=== PATIENT | female | born 1985 | race American Indian/Alaskan Native ===

== ENCOUNTER 2018-01-13 11:31 | Emergency (ER) | payer MEDICAID ==
[2018-01-13 11:37] VITALS: BP 118/78
[2018-01-13] MEDS ORDERED: ULTRAM PO ONE (13:22)
[2018-01-13] MEDS ORDERED: MOTRIN PO ONE (13:22)
--- NOTE | 2018-01-13 13:27 | Emergency Department Report ---
ED Back Pain/Injury HPI - General Chief Complaint: Back Pain/Injury Stated Complaint: NECK/BACK SPASM Time Seen by Provider: 01/13/18 13:17 Source: patient Limitations: No Limitations - History of Present Illness Initial Comments: Patient is a 32-year-old female who has a history of herniated disc who is presenting with pain. Patient states is located upper back. Patient states she was laying in bed 2 days ago and she went to turn to get out of the bed and started hurting. Patient denies any numbness in the arms legs any bowel or bladder abnormality. Patient denies any fever or IV drug use at this time. Severity scale (0 -10): 7 Quality: dull, aching Consistency: constant Worsens With: movement - Related Data Previous Rx's Medication Instructions Recorded Last Taken Type Ibuprofen [Motrin 800 MG tab] 800 mg PO ONCE #20 tablet 01/13/18 Unknown Rx methOCARBAMOL [Robaxin TAB] 500 mg PO Q6H PRN #20 tablet 01/13/18 Unknown Rx traMADol [Ultram 50 MG tab] 50 mg PO ONCE #12 tablet 01/13/18 Unknown Rx Allergies Allergy/AdvReac Type Severity Reaction Status Date / Time No Known Allergies Allergy Unverified 01/13/18 11:35 ED Review of Systems ROS: Stated complaint: NECK/BACK SPASM Other details as noted in HPI Comment: All other systems reviewed and negative ED Back Pain Physical Exam - Exam General: Vital signs noted. No distress. Alert and acting appropriately. The patient's lung and cardiovascular exams are within normal limits Back/Abdomen: Yes Perithoracic Tenderness, No Abdominal Tenderness, No Perilumbar Tenderness, No Sacroiliac Tenderness, No Flank Tenderness, No Straight Leg Raise Pain Neuro: Yes Normal Sensation, Yes Normal DTR's, Yes Normal Gait, No Motor Weakness ED Course Vital Signs 01/13/18 11:35 Temperature 98.3 F Pulse Rate 73 Respiratory 18 Rate Blood Pressure 118/78 O2 Sat by Pulse 100 Oximetry Critical care attestation.: If time is entered above; I have spent that time in minutes in the direct care of this critically ill patient, excluding procedure time. ED Disposition Clinical Impression: Back strain Qualifiers: Encounter type: initial encounter Qualified Code(s): S39.012A - Strain of muscle, fascia and tendon of lower back, initial encounter Disposition: -01 TO HOME OR SELFCARE Is pt being admited?: No Does the pt Need Aspirin: No Condition: Stable Instructions: Back Pain (ED) Prescriptions: Ibuprofen [Motrin 800 MG tab] 800 mg PO ONCE #20 tablet methOCARBAMOL [Robaxin TAB] 500 mg PO Q6H PRN #20 tablet PRN Reason: Pain traMADol [Ultram 50 MG tab] 50 mg PO ONCE #12 tablet Referrals: RAJAT GALARZA MD [Staff Physician] - 3-5 Days
== END 2018-01-13 13:38 | disposition home or self-care (01) ==
LOC: ED 11:31
DX: S39.012A Strain of muscle, fascia and tendon of lower back, initial encounter (principal); X58.XXXA Exposure to other specified factors, initial encounter; Y93.89 Activity, other specified; Y92.89 Other specified places as the place of occurrence of the external cause; Y99.8 Other external cause status
CPT/HCPCS: 99282

== ENCOUNTER 2018-01-22 04:15 | Emergency (ER) | payer MEDICAID ==
[2018-01-22 05:17] VITALS: BP 131/100
[2018-01-22] MEDS ORDERED: TORADOL ONE (05:20)
[2018-01-22] MEDS ORDERED: TORADOL IM ONE (05:25)
[2018-01-22 05:46] LABS: Bilirubin,Urine NEG (Negative); Blood,Urine NEG (Negative); Color,Urine Yellow (Yellow); Hyaline Casts,Urine 4 /LPF; Mucus,Urine 3+ /HPF; Protein,Urine <15 mg/dL mg/dL (Negative)
[2018-01-22 05:53] LABS: Hematocrit 33.6 % (30.3-42.9); Hemoglobin 11.3 gm/dl (10.1-14.3); Mean Corpuscular HGB Conc 34 % (30-34); Mean Corpuscular Hemoglobin 30 pg (28-32); Mean Corpuscular Volume 89 fl (79-97); Platelet Count 167 K/mm3 (140-440); Red Blood Count 3.78 M/mm3 (3.65-5.03); Red Cell Distribution Width 13.4 % (13.2-15.2)
[2018-01-22 06:02] LABS: BUN/Creatinine Ratio 17; Blood Urea Nitrogen 10 mg/dL (7-17); Calcium 8.6 mg/dL (8.4-10.2); Hemolysis Index 8
[2018-01-22 07:55] LABS: Basophils % (Manual) 0 % (0.0-1.8); Total Cells Counted 100
[2018-01-22 07:56] LABS: Anisocytosis 1+
--- NOTE | 2018-01-22 10:40 | Emergency Department Report ---
ED Abdominal Pain HPI - General Chief Complaint: Abdominal Pain Stated Complaint: LOWER BACK PAIN Time Seen by Provider: 01/22/18 10:36 Source: patient Mode of arrival: Ambulatory Limitations: No Limitations - History of Present Illness MD Complaint: flank pain -: Sudden, days(s) (1 day) Location: R flank Radiation: none Migration to: no migration Severity: severe Severity scale (0 -10): 10 Quality: stabbing Consistency: constant Improves With: rest Worsens With: movement Associated Symptoms: denies other symptoms Treatments Prior to Arrival: NSAIDs - Related Data LMP (females 10-50): 3 weeks Previous Rx's Medication Instructions Recorded Last Taken Type methOCARBAMOL [Robaxin TAB] 500 mg PO Q6H PRN #20 tablet 01/13/18 Unknown Rx traMADol [Ultram 50 MG tab] 50 mg PO ONCE #12 tablet 01/13/18 Unknown Rx Ibuprofen [Motrin 800 MG tab] 800 mg PO ONCE #20 tablet 01/22/18 Unknown Rx Tamsulosin HCl [Flomax] 0.4 mg PO QDAY 14 Days #14 01/22/18 Unknown Rx cap.er.24h Allergies Allergy/AdvReac Type Severity Reaction Status Date / Time No Known Allergies Allergy Unverified 01/13/18 11:35 ED Review of Systems ROS: Stated complaint: LOWER BACK PAIN Other details as noted in HPI Comment: All other systems reviewed and negative Constitutional: denies: chills, fever Eyes: denies: eye pain, eye discharge, vision change ENT: denies: ear pain, throat pain Respiratory: denies: cough, shortness of breath, wheezing Cardiovascular: denies: chest pain, palpitations Endocrine: no symptoms reported Gastrointestinal: abdominal pain. denies: nausea, diarrhea Genitourinary: denies: urgency, dysuria, discharge Musculoskeletal: denies: back pain, joint swelling, arthralgia Skin: denies: rash, lesions Neurological: denies: headache, weakness, paresthesias Psychiatric: denies: anxiety, depression Hematological/Lymphatic: denies: easy bleeding, easy bruising ED Past Medical Hx - Past Medical History Previous Medical History?: Yes Hx Asthma: Yes - Surgical History Past Surgical History?: Yes Additional Surgical History: sinus, knee, hand, C/S - Family History Family history: hypertension - Social History Smoking Status: Never Smoker Substance Use Type: None - Medications Home Medications: Home Medications Medication Instructions Recorded Confirmed Last Taken Type methOCARBAMOL [Robaxin TAB] 500 mg PO Q6H PRN #20 tablet 01/13/18 Unknown Rx traMADol [Ultram 50 MG tab] 50 mg PO ONCE #12 tablet 01/13/18 Unknown Rx Ibuprofen [Motrin 800 MG tab] 800 mg PO ONCE #20 tablet 01/22/18 Unknown Rx Tamsulosin HCl [Flomax] 0.4 mg PO QDAY 14 Days #14 01/22/18 Unknown Rx cap.er.24h ED Physical Exam - General Limitations: No Limitations General appearance: alert, in no apparent distress - Head Head exam: Present: atraumatic, normocephalic - Eye Eye exam: Present: normal appearance - ENT ENT exam: Present: mucous membranes moist - Neck Neck exam: Present: normal inspection - Respiratory Respiratory exam: Present: normal lung sounds bilaterally. Absent: respiratory distress - Cardiovascular Cardiovascular Exam: Present: regular rate, normal rhythm. Absent: systolic murmur, diastolic murmur, rubs, gallop - GI/Abdominal GI/Abdominal exam: Present: soft, normal bowel sounds - Extremities Exam Extremities exam: Present: normal inspection - Back Exam Back exam: Present: normal inspection, CVA tenderness (R) - Neurological Exam Neurological exam: Present: alert, oriented X3 - Psychiatric Psychiatric exam: Present: normal affect, normal mood - Skin Skin exam: Present: warm, dry, intact, normal color. Absent: rash ED Course Vital Signs 01/22/18 05:08 Temperature 98 F Pulse Rate 88 Respiratory 18 Rate Blood Pressure 131/100 O2 Sat by Pulse 100 Oximetry - Reevaluation(s) Reevaluation #1: Per radiologist CT is positive for right renal stone. Patient is stable for discharge. 01/22/18 12:16 ED Medical Decision Making - Lab Data Result diagrams: 01/22/18 05:36 01/22/18 05:36 - Radiology Data Radiology results: pending interpreted by me: Radiologist called with results Right renal stone no hydronephrosis. - Medical Decision Making Patient is a 32-year-old female who presented with right flank pain. Found to have right kidney stones on CT. No hydronephrosis. Patient stable at discharge. We'll discharge patient home. Patient instructed to see PCP and urologist within 3-5 days. Patient to take Rx as directed. - Differential Diagnosis uti. flank pain. renal stone. Critical care attestation.: If time is entered above; I have spent that time in minutes in the direct care of this critically ill patient, excluding procedure time. ED Disposition Clinical Impression: Flank pain, Kidney stone Disposition: TO HOME OR SELFCARE Is pt being admited?: No Does the pt Need Aspirin: No Condition: Stable Instructions: Abdominal Pain (ED) Additional Instructions: Patient to follow up with primary care and urologist in 3-5 days. Patient increase water. Patient to return to ER if condition worsens. Patient to take Tylenol when necessary for pain. Patient has tramadol patient instructed to use as directed. Prescriptions: Ibuprofen [Motrin 800 MG tab] 800 mg PO ONCE #20 tablet Tamsulosin HCl [Flomax] 0.4 mg PO QDAY 14 Days #14 cap.er.24h Referrals: LEONOR HUMPHREY MD [Primary Care Provider] - 3-5 Days Time of Disposition: 12:30
[2018-01-22] MEDS ORDERED: TYLENOL ONE (11:38)
--- NOTE | 2018-01-22 15:59 | Cat Scan Report ---
FINAL REPORT EXAM: CT ABDOMEN PELVIS WO CON HISTORY: rt flank pain TECHNIQUE: CT examination of the ABDOMEN without IV contrast CT examination of the PELVIS without IV contrast PRIORS: None. FINDINGS: Normal noncontrast appearance of the liver, gallbladder, adrenals, pancreas, and spleen. Normal caliber abdominal aorta and IVC. 1 mm nonobstructing right renal calculus. 1 mm nonobstructing left renal calculus. There are nonspecific hyperdense renal pyramids. This may reflect developmental variation, dehydration, or represent medullary nephrocalcinosis. No hydronephrosis. The exam is limited from a paucity of natural intra-abdominal fat, and lack of contrast, to separate adjacent organs and structures. The ureters are largely obscured by adjacent soft tissues. Intestinal loops are also difficult to visualize separately. No retroperitoneal adenopathy. No definite mesenteric mass. Intact abdominal wall. No abnormality in visible stomach and duodenum. No small bowel distention in the abdomen and pelvis. No pelvic free fluid. Normal-appearing urinary bladder, uterus, and adnexa. No gross ascites or free air. Normal visible portion of the appendix. Normal-appearing terminal ileum. Rectum distended with feces and gas. Prominent feces, caliber, and gas throughout the colon. Findings suggest moderate constipation. IMPRESSION: Prominent feces and caliber throughout the colon and rectum suggestive of moderate constipation. There may be a component of paralytic ileus given prominence of gas as well 1 mm nonobstructing calculus in each kidney Hyperdense renal pyramids may reflect developmental variation or dehydration. The differential includes medullary nephrocalcinosis.
== END 2018-01-22 13:00 | disposition home or self-care (01) ==
LOC: ED 04:15
DX: N20.0 Calculus of kidney (principal); R10.30 Lower abdominal pain, unspecified
CPT/HCPCS: 36415; 74176; 80048; 81001; 84703; 85007; 85025; 96372; 99284; J1885

== ENCOUNTER 2018-03-17 06:06 | Emergency (ER) | payer MEDICAID ==
[2018-03-17 06:17] VITALS: BP 126/95
[2018-03-17] MEDS ORDERED: TYLENOL #3 PO ONE (09:35)
--- NOTE | 2018-03-17 09:40 | Emergency Department Report ---
ED ENT HPI - General Chief complaint: Earache Stated complaint: LEFT EAR PAIN Time Seen by Provider: 03/17/18 08:39 Source: patient Mode of arrival: Ambulatory Limitations: No Limitations - History of Present Illness Initial comments: This is a 32-year-old female nontoxic, well nourished in appearance, no acute signs of distress presents to the ED with c/o of left earache x3 days. Patient denies any trauma to the area. Patient stated that left earache radiates towards her left sided head/neck area. Patient denies any hearing changes or decreased hearing. Patient denies any mastoid tenderness. Patient denies any fever, chills, nausea, vomiting, headache, stiff neck, abdominal pain, back pain , numbness or tingling. Patient denies any allergies. Past medical history includes asthma and HIV. Patient stated that she is undetectable as per 2 months ago for HIV. MD complaint: ear pain -: days(s) (3) Location: L ear Severity: mild Severity scale (0 -10): 8 Quality: aching Consistency: constant Improves with: none Worsens with: none Associated Symptoms: denies: fever, cough, gum swelling, toothache, pain with swallowing, sore throat, tinnitus, hearing loss, discharge from ear, rhinorrhea - Related Data Previous Rx's Medication Instructions Recorded Last Taken Type methOCARBAMOL [Robaxin TAB] 500 mg PO Q6H PRN #20 tablet 01/13/18 Unknown Rx traMADol [Ultram 50 MG tab] 50 mg PO ONCE #12 tablet 01/13/18 Unknown Rx Ibuprofen [Motrin 800 MG tab] 800 mg PO ONCE #20 tablet 01/22/18 Unknown Rx Tamsulosin HCl [Flomax] 0.4 mg PO QDAY 14 Days #14 01/22/18 Unknown Rx cap.er.24h Acetaminophen/Codeine [Tylenol 1 tab PO Q6H PRN #12 tab 03/17/18 Unknown Rx /Codeine # 3 tab] Amoxicillin/K Clav Tab [Augmentin 1 tab PO Q12HR #20 tab 03/17/18 Unknown Rx 875 mg] Allergies Allergy/AdvReac Type Severity Reaction Status Date / Time No Known Allergies Allergy Verified 03/17/18 06:16 ED Dental HPI - General Chief complaint: Earache Stated complaint: LEFT EAR PAIN Time Seen by Provider: 03/17/18 08:39 Source: patient Mode of arrival: Ambulatory Limitations: No Limitations - Related Data Previous Rx's Medication Instructions Recorded Last Taken Type methOCARBAMOL [Robaxin TAB] 500 mg PO Q6H PRN #20 tablet 01/13/18 Unknown Rx traMADol [Ultram 50 MG tab] 50 mg PO ONCE #12 tablet 01/13/18 Unknown Rx Ibuprofen [Motrin 800 MG tab] 800 mg PO ONCE #20 tablet 01/22/18 Unknown Rx Tamsulosin HCl [Flomax] 0.4 mg PO QDAY 14 Days #14 01/22/18 Unknown Rx cap.er.24h Acetaminophen/Codeine [Tylenol 1 tab PO Q6H PRN #12 tab 03/17/18 Unknown Rx /Codeine # 3 tab] Amoxicillin/K Clav Tab [Augmentin 1 tab PO Q12HR #20 tab 03/17/18 Unknown Rx 875 mg] Allergies Allergy/AdvReac Type Severity Reaction Status Date / Time No Known Allergies Allergy Verified 03/17/18 06:16 ED Review of Systems ROS: Stated complaint: LEFT EAR PAIN Other details as noted in HPI Constitutional: denies: chills, fever Eyes: denies: eye pain, eye discharge, vision change ENT: ear pain. denies: throat pain Respiratory: denies: cough, shortness of breath, wheezing Cardiovascular: denies: chest pain, palpitations Endocrine: no symptoms reported Gastrointestinal: denies: abdominal pain, nausea, diarrhea Genitourinary: denies: urgency, dysuria, discharge Musculoskeletal: denies: back pain, joint swelling, arthralgia Skin: denies: rash, lesions Neurological: denies: headache, weakness, paresthesias Psychiatric: denies: anxiety, depression Hematological/Lymphatic: denies: easy bleeding, easy bruising ED Past Medical Hx - Past Medical History Previous Medical History?: Yes Hx Asthma: Yes Hx HIV: Yes - Surgical History Past Surgical History?: Yes Additional Surgical History: sinus, knee, hand, x1 - Social History Smoking Status: Never Smoker Substance Use Type: None - Medications Home Medications: Home Medications Medication Instructions Recorded Confirmed Last Taken Type methOCARBAMOL [Robaxin TAB] 500 mg PO Q6H PRN #20 tablet 01/13/18 Unknown Rx traMADol [Ultram 50 MG tab] 50 mg PO ONCE #12 tablet 01/13/18 Unknown Rx Ibuprofen [Motrin 800 MG tab] 800 mg PO ONCE #20 tablet 01/22/18 Unknown Rx Tamsulosin HCl [Flomax] 0.4 mg PO QDAY 14 Days #14 01/22/18 Unknown Rx cap.er.24h Acetaminophen/Codeine [Tylenol 1 tab PO Q6H PRN #12 tab 03/17/18 Unknown Rx /Codeine # 3 tab] Amoxicillin/K Clav Tab [Augmentin 1 tab PO Q12HR #20 tab 03/17/18 Unknown Rx 875 mg] ED Physical Exam - General Limitations: No Limitations General appearance: alert, in no apparent distress - Head Head exam: Present: atraumatic, normocephalic - Eye Eye exam: Present: normal appearance Pupils: Present: normal accommodation - ENT ENT exam: Present: normal orophraynx, mucous membranes moist, normal external ear exam - Expanded ENT Exam Expanded Ear exam: Present: normal external inspection TM/Canal exam: Erythema: Left TM, Bulging: Left TM Mouth exam: Present: normal external inspection, tongue normal. Absent: drooling, trismus, muffled voice, tongue elevation, laceration Teeth exam: Present: normal inspection Throat exam: Positive: normal inspection. Negative: tonsillar erythema, tonsillomegaly, tonsillar exudate, R peritonsillar mass, L peritonsillar mass - Neck Neck exam: Present: normal inspection, full ROM. Absent: tenderness, meningismus, lymphadenopathy - Respiratory Respiratory exam: Present: normal lung sounds bilaterally. Absent: respiratory distress, wheezes, rales, rhonchi, stridor, chest wall tenderness, accessory muscle use, decreased breath sounds, prolonged expiratory - Cardiovascular Cardiovascular Exam: Present: regular rate, normal rhythm, normal heart sounds. Absent: bradycardia, tachycardia, irregular rhythm, systolic murmur, diastolic murmur, rubs, gallop - GI/Abdominal GI/Abdominal exam: Present: soft, normal bowel sounds. Absent: distended, tenderness, guarding, rebound, rigid, diminished bowel sounds - Rectal Rectal exam: Present: deferred - Extremities Exam Extremities exam: Present: normal inspection, full ROM, normal capillary refill - Back Exam Back exam: Present: normal inspection, full ROM - Neurological Exam Neurological exam: Present: alert, oriented X3, normal gait - Psychiatric Psychiatric exam: Present: normal affect, normal mood - Skin Skin exam: Present: warm, dry, intact, normal color. Absent: rash ED Course Vital Signs 03/17/18 03/17/18 06:06 06:11 Temperature 98.2 F 98.2 F Pulse Rate 82 83 Respiratory 18 18 Rate Blood Pressure 126/95 126/95 O2 Sat by Pulse 98 99 Oximetry - Reevaluation(s) Reevaluation #1: 03/17/18 09:41 Patient is speaking in full sentences with no signs of distress noted. Critical care attestation.: If time is entered above; I have spent that time in minutes in the direct care of this critically ill patient, excluding procedure time. ED Disposition Clinical Impression: Left otitis media Qualifiers: Otitis media type: unspecified Qualified Code(s): H66.92 - Otitis media, unspecified, left ear Disposition: - TO HOME OR SELFCARE Is pt being admited?: No Does the pt Need Aspirin: No Condition: Stable Instructions: Otitis Media (ED) Additional Instructions: Follow-up with a ENT doctor in 3-5 days or if symptoms worsen and continue return to emergency room as soon as possible. Prescriptions: Acetaminophen/Codeine [Tylenol /Codeine # 3 tab] 1 tab PO Q6H PRN #12 tab PRN Reason: Pain Amoxicillin/K Clav Tab [Augmentin 875 mg] 1 tab PO Q12HR #20 tab Referrals: PRIMARY CAREMD [Primary Care Provider] - 3-5 Days IZABELA PARDO MD [Staff Physician] - 3-5 Days [facility] [Outside] - 3-5 Days [facility] [Outside] - 3-5 Days MICHAEL GONZALEZ MD [Staff Physician] - 3-5 Days Forms: Work/School Release Form(ED)
== END 2018-03-17 10:09 | disposition home or self-care (01) ==
LOC: ED 06:06
DX: H66.92 Otitis media, unspecified, left ear (principal); J45.909 Unspecified asthma, uncomplicated
CPT/HCPCS: 99282

== ENCOUNTER 2022-04-17 02:02 | Emergency (ER) | payer MEDICAID, OTHER ==
[2022-04-17] MEDS ORDERED: ALBUTEROL 2.5 MG/3 ML NEBU IH ONE (02:22)
[2022-04-17] MEDS ORDERED: AZITHROMYCIN 250 MG TAB PO ONE (02:22)
[2022-04-17] MEDS ORDERED: dexAMETHasone 20 MG/5 ML VIAL IM ONE (02:22)
--- NOTE | 2022-04-17 02:28 | Emergency Department Report ---
ED General Adult HPI - General Chief complaint: Adult Asthma Stated complaint: CHEST PAIN/ASTHMA Time Seen by Provider: 04/17/22 02:18 Source: patient Mode of arrival: Ambulatory Limitations: No Limitations - History of Present Illness Initial comments: Patient 36-year-old female with history of asthma and HIV. Patient presents for productive cough yellow-green and wheezing x2 days. Patient states out of albuterol inhaler. Patient does deny fever or chills. Does endorse head congestion and sore throat. Symptoms are exacerbated by environmental exposure. Symptoms are relieved by nothing tried. There is no nausea no vomiting. There is no dizziness or lightheadedness. Patient states automatic locations request referral to PCP. Patient rates asthma symptoms at 5/10 at this time. - Related Data Previous Rx's Medication Instructions Recorded Last Taken Type methOCARBAMOL [Robaxin TAB] 500 mg PO Q6H PRN #20 tablet 01/13/18 Unknown Rx traMADoL [Ultram 50 MG tab] 50 mg PO ONCE #12 tablet 01/13/18 Unknown Rx Ibuprofen [Motrin 800 MG tab] 800 mg PO ONCE #20 tablet 01/22/18 Unknown Rx Tamsulosin HCl [Flomax] 0.4 mg PO QDAY 14 Days #14 01/22/18 Unknown Rx cap.er.24h Acetaminophen/Codeine [Tylenol 1 tab PO Q6H PRN #12 tab 03/17/18 Unknown Rx /Codeine # 3 tab] Amoxicillin/K Clav Tab [Augmentin 1 tab PO Q12HR #20 tab 03/17/18 Unknown Rx 875 mg] Albuterol Mdi (or & Nicu Only) 2 puff IH QID PRN #8.5 gram 04/17/22 Unknown Rx [ProAir HFA Inhaler] Azithromycin 500 mg PO DAILY 5 Days #5 tab 04/17/22 Unknown Rx dexAMETHasone [Decadron] 4 mg PO BID 5 Days #10 tablet 04/17/22 Unknown Rx Allergies Allergy/AdvReac Type Severity Reaction Status Date / Time No Known Allergies Allergy Verified 03/17/18 06:16 ED Review of Systems ROS: Stated complaint: CHEST PAIN/ASTHMA Other details as noted in HPI Constitutional: malaise Eyes: denies: eye pain, eye discharge, vision change ENT: throat pain, congestion Respiratory: cough, shortness of breath, wheezing Cardiovascular: chest pain (Right anterior lower chest wall pain with cough along). denies: paroxysmal nocturnal dyspnea Endocrine: no symptoms reported Gastrointestinal: denies: abdominal pain, nausea, vomiting, diarrhea Genitourinary: denies: urgency, dysuria, discharge Musculoskeletal: denies: back pain, joint swelling, arthralgia Skin: denies: rash, lesions Neurological: denies: headache, weakness, paresthesias, vertigo Psychiatric: denies: anxiety, depression Hematological/Lymphatic: denies: easy bleeding, easy bruising ED Past Medical Hx - Past Medical History Hx Asthma: Yes Hx HIV: Yes - Surgical History Additional Surgical History: sinus, knee, hand, x1 - Social History Smoking Status: Never Smoker Substance Use Type: None - Medications Home Medications: Home Medications Medication Instructions Recorded Confirmed Last Taken Type methOCARBAMOL [Robaxin TAB] 500 mg PO Q6H PRN #20 tablet 01/13/18 Unknown Rx traMADoL [Ultram 50 MG tab] 50 mg PO ONCE #12 tablet 01/13/18 Unknown Rx Ibuprofen [Motrin 800 MG tab] 800 mg PO ONCE #20 tablet 01/22/18 Unknown Rx Tamsulosin HCl [Flomax] 0.4 mg PO QDAY 14 Days #14 01/22/18 Unknown Rx cap.er.24h Acetaminophen/Codeine [Tylenol 1 tab PO Q6H PRN #12 tab 03/17/18 Unknown Rx /Codeine # 3 tab] Amoxicillin/K Clav Tab [Augmentin 1 tab PO Q12HR #20 tab 03/17/18 Unknown Rx 875 mg] Albuterol Mdi (or & Nicu Only) 2 puff IH QID PRN #8.5 gram 04/17/22 Unknown Rx [ProAir HFA Inhaler] Azithromycin 500 mg PO DAILY 5 Days #5 tab 04/17/22 Unknown Rx dexAMETHasone [Decadron] 4 mg PO BID 5 Days #10 tablet 04/17/22 Unknown Rx ED Physical Exam - General Limitations: No Limitations General appearance: alert, in no apparent distress - Head Head exam: Present: normocephalic, normal inspection - Eye Eye exam: Present: EOMI Pupils: Present: normal accommodation - ENT ENT exam: Present: normal orophraynx, mucous membranes moist, TM's normal bilaterally - Neck Neck exam: Present: normal inspection, full ROM. Absent: tenderness, lymphadenopathy - Respiratory Respiratory exam: Present: wheezes, chest wall tenderness (Right anterior chest wall no crepitus no ecchymosis no step-off). Absent: respiratory distress, rales, rhonchi, stridor, prolonged expiratory - Expanded Respiratory Exam Expanded Location: Wheezes: Right, Left, Upper (Expiratory wheezes) - Cardiovascular Cardiovascular Exam: Present: regular rate, normal rhythm, normal heart sounds. Absent: systolic murmur, diastolic murmur, rubs, gallop - GI/Abdominal GI/Abdominal exam: Present: soft, normal bowel sounds. Absent: distended, tenderness, bruit, hernia - Rectal Rectal exam: Present: deferred (`) - Extremities Exam Extremities exam: Present: normal inspection, full ROM, normal capillary refill. Absent: tenderness - Back Exam Back exam: Present: normal inspection, full ROM. Absent: CVA tenderness (R), CVA tenderness (L) - Neurological Exam Neurological exam: Present: alert, oriented X3, CN II-XII intact - Expanded Neurological Exam Expanded Patient oriented to: Present: person, place, time Speech: Present: fluid speech Motor strength exam: RUE: 5, LUE: 5, RLE: 5, LLE: 5 Best Eye Response ([place]): (4) open spontaneously Best Motor Response ([place]): (6) obeys commands Best Verbal Response ([place]): (5) oriented [place] Total: 15 - Psychiatric Psychiatric exam: Present: normal affect, normal mood - Skin Skin exam: Present: warm, dry, intact, normal color. Absent: rash ED Course Vital Signs 04/17/22 02:09 Temperature 98.4 F Pulse Rate 93 H Respiratory 20 Rate Blood Pressure 119/78 O2 Sat by Pulse 98 Oximetry ED Medical Decision Making - Radiology Data Radiology results: report reviewed, image reviewed CHEST 2 VIEWS INDICATION / CLINICAL INFORMATION: cough productive. COMPARISON: None available. FINDINGS: SUPPORT DEVICES: None. HEART / MEDIASTINUM: No significant abnormality. LUNGS / PLEURA: No significant pulmonary or pleural abnormality. No pneumothorax. ADDITIONAL FINDINGS: No significant additional findings. IMPRESSION: 1. No acute findings. Signer Name: Guillermo Whitfield MD Signed: 04/17/2022 2:52 AM Workstation Name: [id number] Transcribed By: TL Dictated By: Guillermo Whitfield MD Electronically Authenticated By: Guillermo Whitfield MD Signed Date/Time: 04/17/22251 DD/ 1 TD/TT: - Medical Decision Making Patient 36-year-old female with history of asthma and HIV. Patient presents for productive cough yellow-green and wheezing x2 days. Patient states out of albuterol inhaler. Patient does deny fever or chills. Does endorse head congestion and sore throat. Symptoms are exacerbated by environmental exposure. Symptoms are relieved by nothing tried. There is no nausea no vomiting. There is no dizziness or lightheadedness. Patient states automatic locations request referral to PCP. Patient rates asthma symptoms at 5/10 at this time. Chest x-ray no infiltrates no opacities, symptoms are improved with medications given in ED. plan DC to home with prescriptions. Follow-up with primary care doctor in 2 to 3 days. Patient given referral to primary care as requested. Patient is currently alert oriented x3 patient is ambulated from room to restroom and returned to room without increased shortness of breath or wheezing. Patient with no acute distress at this time. Respirations are even and nonlabored with mild expiratory wheezes at this time. Critical care attestation.: If time is entered above; I have spent that time in minutes in the direct care of this critically ill patient, excluding procedure time. ED Disposition Clinical Impression: Asthma Qualifiers: Asthma severity: moderate Asthma persistence: unspecified Asthma complication type: uncomplicated Qualified Code(s): J45.909 - Unspecified asthma, uncomplicated Disposition: 01 HOME / SELF CARE / HOMELESS Is pt being admited?: No Does the pt Need Aspirin: No Condition: Stable Instructions: Asthma (ED), Asthma, Adult, Asthma Attack Prevention, Adult Additional Instructions: Take medications as prescribed, follow-up with your doctor in 2 to 3 days. Return to emergency department should symptoms worsen. Prescriptions: Azithromycin 500 mg PO DAILY 5 Days #5 tab dexAMETHasone [Decadron] 4 mg PO BID 5 Days #10 tablet Albuterol Mdi (or & Nicu Only) [ProAir HFA Inhaler] 2 puff IH QID PRN #8.5 gram PRN Reason: Shortness Of Breath Referrals: CHERYL ASKEW MD [Staff Physician] - 3-5 Days ASTON SIGALA MD [Staff Physician] - 3-5 Days Forms: Work/School Release Form(ED) Time of Disposition: 03:06
--- NOTE | 2022-04-17 02:56 | XRay Report ---
CHEST 2 VIEWS INDICATION / CLINICAL INFORMATION: cough productive. COMPARISON: None available. FINDINGS: SUPPORT DEVICES: None. HEART / MEDIASTINUM: No significant abnormality. LUNGS / PLEURA: No significant pulmonary or pleural abnormality. No pneumothorax. ADDITIONAL FINDINGS: No significant additional findings. IMPRESSION: 1. No acute findings. Signer Name: Guillermo Whitfield MD Signed: 04/17/2022 2:52 AM Workstation Name: [id number]
[2022-04-17 04:06] VITALS: BP 120/65
== END 2022-04-17 04:19 | disposition home or self-care (01) ==
LOC: ED 02:02
DX: J45.909 Unspecified asthma, uncomplicated (principal)
CPT/HCPCS: 71046; 94640; 96372; 99283; J1100; 94644